=== PATIENT | male | born 1990 | race Caucasian/White ===

== ENCOUNTER 2020-09-21 11:11 | Emergency (ER) | payer BC, MEDICAID, OTHER ==
[~2020-09-21] VITALS: Ht 190.5 cm; Wt 77.7 kg
--- NOTE | 2020-09-21 11:22 | NUR ---
Note shiratri in EDM - 09/21/20 at 1135 by [email or web address] PT REPORTS STEPPING ON [place] AROUND 9AM AND TWISTED LEFT ANKLE. SWELLING AND BRUISING NOTED AROUND LEFT ANKLE. PT STATES NO HEAD INJURY OR INJURY TO REST OF BODY.
--- NOTE | 2020-09-21 11:35 | NUR ---
PT STATES RT TESTICLE PAIN AND SWELLING HAPPENED LAST NIGHT. STATES THIS HAS HAPPENED BEFORE AND HE HAD A STD.
--- NOTE | 2020-09-21 12:02 | NUR ---
PT OFF UNIT IN IMAGING
--- NOTE | 2020-09-21 12:26 | NUR ---
PT NOTED TALKING TO REGISTRATION.
--- NOTE | 2020-09-21 12:43 | NUR ---
PT LYING IN BED TALKING TO REGISTRATION
[2020-09-21 12:59] VITALS: BP 109/60
[2020-09-21 13:04] LABS: MICROSCOPIC NOT IND
== END 2020-09-21 13:18 | disposition home or self-care (01) ==
LOC: ED 12:32
DX: N45.3 Epididymo-orchitis (principal); N50.89 Other specified disorders of the male genital organs; N50.811 Right testicular pain
CPT/HCPCS: 76870; 81003; 87491; 87591; 99284